=== PATIENT | female | born 1960 | race Caucasian/White ===

== ENCOUNTER 2021-09-02 02:25 | Day surgery (SDC) | payer OTHER, SELFPAY ==
[2021-08-29 16:06] VITALS: BMI 30.2
--- NOTE | 2021-08-29 16:06 | PC.NURSE ---
Report to the Outpatient Waiting Room, entrance under the green pavilion located off [facility], at time _0700 on date __09/02/21__. OR Time: ___09 . - You and your visitor will be asked a series of questions to screen for COVID 19 for your protection. - Only one visitor is allowed at this time. - The patient visitor is requested to leave or wait in car when not with patient. - A mask is required within the hospital. Patients may have clear liquids (water, carbonated beverages, clear teas, apple juice) until 3 hours prior to surgery with a maximum of 20 ounces. - No food from midnight until time of surgery - Infants may have breast milk until 4 hours before surgery, formula 6 hours prior to surgery. - Children will be allowed to drink immediately following surgery. If applicable, please bring a bottle or sippy cup to assist with drinking. Juice, water, soda, and popsicles are readily available. For infants on formula, please bring formula the day of surgery. Pacifiers are allowed. Take the following medications with a SIP of water the morning of surgery: ___N/A Medications to discontinue per physician N/A Date to take last dose N/A Please no make-up, nail irish, hairspray, perfume, deodorant, or body powder the day of surgery. No jewelry (including any body piercings) or valuables the day of surgery, leave them at home. Please take a shower or bath the night before, or the morning of, surgery with an antibacterial soap. Wear comfortable, loose fitting clothing. Children are encouraged to wear pajamas. - Jewelry must be removed prior to entering the operating room. Rings and piercings that are not removed may be cut off. - The hospital will not accept responsibility for valuables. - Please leave all valuables, including medications, at home the day of surgery. If you are going home after surgery, a licensed tow motor driver must drive you home. - NO public transportation without another adult. - We recommend that an adult stay with you for 24 hours following discharge. - We also recommend that you do not drive, make important decision, drink alcoholic beverages, or take any drugs that were not prescribed by your health care provider for at least 24 hours after your discharge time. For Pediatric surgeries, we recommend two adults accompany the child home (only one inside the building at this time). Follow any additional instructions given to you from your surgeon. If you or anyone in your household have experienced Covid symptoms in the past week, please notify your surgeon or the nurse liaison at the phone number below for possible testing. Telephone instructions given to _PATIENT and asked if any additional questions and then verbalized understanding. Patient advised to call surgeon office or pre surgery nurse liaison [phone] if any additional questions.
[2021-09-02] MEDS: ACETAMINOPHEN 500 MG TABLET 1000 MG PO (06:56)
--- NOTE | 2021-09-02 07:18 | WPDHPUPDATE1 ---
History and Physical Update Update Date/Time: 09/02/21 07:18 History and Physical has been reviewed, including an updated exam of the patient. There are NO changes in the patient's condition. Risks, benefits, and alternatives have been discussed and questions answered. Patient agrees to proceed with procedure.
--- NOTE | 2021-09-02 07:18 | PM.HPGS ---
History of Present Illness History of Present Illness Consent: Risks, benefits, and alternatives have been discussed and questions answered. Patient agrees to proceed with procedure. Chief complaint: post menopausal bleeding, endometrial polyp Narrative: Charu Sanchez is a 61 year old female with episode of postmenopausal bleeding. Patient underwent hysteroscopy in the office and there was a large polyp that was unable to be removed with myoma graspers. Was recommended to proceed with MyoSure excision in the operating room. Risks of infection, bleeding, perforation, and fluid imbalance were reviewed. Possible pathology was discussed. Patient voices understanding and agrees to proceed. Review of Systems Review of Systems: not repeated day of surgery; patient states no changes in status PMFSH Past Medical History Medical History (Updated 09/02/21 @ 07:21 by Susie Karimi MD) (normal spontaneous vaginal delivery) X2 Surgical History Surgical History (Updated 09/02/21 @ 07:20 by Susie Karimi MD) History of hysteroscopy August 09 Social History Social History Smoking status: Never smoker Alcohol intake: current Drinks per week: 3 Living arrangements: with family Meds Home Medications and Allergies Home Medications Medication Instructions Recorded Confirmed Type cholecalciferol (vitamin D3) 50,000 unit PO WEEKLY 08/29/21 09/02/21 History [Vitamin D3] conjugated estrogens [Premarin] 0.625 mg VAGINAL DAILY 08/29/21 09/02/21 History fluticasone propionate [Flonase] 1 spray INTRANASAL DAILY 08/29/21 09/02/21 History loratadine [Claritin] 10 mg PO DAILY 08/29/21 09/02/21 History Allergies Allergy/AdvReac Type Severity Reaction Status Date / Time amoxicillin Allergy Intermediate Rash Verified 09/02/21 06:53 Exam Const: General: healthy appearing and alert Orientation/consciousness: patient oriented x3 Resp: Effort & Inspection: normal respiratory effort Auscultation: clear to auscultation bilaterally Cardio: Rate: regular rate Rhythm: regular rhythm GI: GI Palp: Yes Soft to palpation, No Tenderness to palpation present (GI) and No Palpable mass present : External Female Exam: normal external appearance Speculum Exam - Vagina: normal appearance of the vagina and normal vaginal discharge Speculum Exam - Cervix: normal appearance of the cervix Bimanual exam- vagina & uterus: uterine size normal and consistency normal Bimanual Exam- Adnexa, other: normal adnexae and No adnexal tenderness Neuro: General: patient oriented x3 Assessment and Plan Assessment and plan (1) Post-menopausal bleeding: Code(s): N95.0 - Postmenopausal bleeding Status: Acute Assessment and Plan: With known polyp. Plan is to proceed with MyoSure resection of polyp and D&C hysteroscopy
[2021-09-02 07:35] VITALS: BP 141/78; PULSE 67; RESP 16; TEMP 36.4; O2SAT 98
[2021-09-02] MEDS: LACTATED RINGERS 1,000 ML 30 ML IV CONT (07:40)
--- NOTE | 2021-09-02 07:54 | WPDANESEPPF ---
Anes - Initial Pre Proc Eval Procedure: Operation Date: 09/02/21 09:00 Proposed Procedures p Hysteroscopy with Myosure - Susie Karimi MD Date/Time: 09/02/21 07:54 Surgeon: Susie Karimi MD Pre Op Diagnosis: post menopausal bleeding, endometrial polyp Patient Data Age: 61 Gender: F Height: 1.63 m Weight: 81.4 kg Last Vital Signs Temp 36.4 C L 09/02/21 07:35 Pulse 67 09/02/21 07:35 Resp 16 09/02/21 07:35 BP 141/78 H 09/02/21 07:35 Pulse Ox 98 09/02/21 07:35 Allergies Allergy/AdvReac Type Severity Reaction Status Date / Time amoxicillin Allergy Intermediate Rash Verified 09/02/21 06:53 Home Medications Medication Instructions Recorded Confirmed Type cholecalciferol (vitamin D3) 50,000 unit PO WEEKLY 08/29/21 09/02/21 History [Vitamin D3] conjugated estrogens [Premarin] 0.625 mg VAGINAL DAILY 08/29/21 09/02/21 History fluticasone propionate [Flonase] 1 spray INTRANASAL DAILY 08/29/21 09/02/21 History loratadine [Claritin] 10 mg PO DAILY 08/29/21 09/02/21 History Patient hx anesthesia problems: none Family hx anesthesia problems: none Results Review: All pre-operative results and documents have been reviewed as part of the pre-operative evaluation. PMFSH Past Medical History Medical History (Updated 09/02/21 @ 07:21 by Susie Karimi MD) (normal spontaneous vaginal delivery) X2 Surgical History Surgical History (Updated 09/02/21 @ 07:20 by Susie Karimi MD) History of hysteroscopy August 09 Social History Social History Smoking status: Never smoker Alcohol intake: current Drinks per week: 3 Living arrangements: with family Anes - Eval Final PreProcedure Day of Procedure 09/02/21 07:54 Patient weight: overweight Heart: regular rate and rhythm Lungs: clear to auscultation and normal air movement Airway: Mallampati scale class II Neurological: alert and oriented Last oral intake: >/= 8 hours ASA classification: II Emergent: no Anesthetic plan: proceed Anesthesia type and monitoring: general GIVS and LMA Results Review: All pre-operative results and documents have been reviewed as part of the pre-operative evaluation. Informed Consent: The patient's anesthetic plan and its attendant risks and benefits were discussed with the patient/family/POA. Questions were solicited and answers provided to the satisfaction of the patient/family/POA.
--- NOTE | 2021-09-02 09:25 | W.PM.PROC2 ---
Procedure Note - Detailed Date of Procedure 09/02/21 Pre-op Diagnosis post menopausal bleeding, endometrial polyp Post-op Diagnosis Same Procedure Performed D&C hysteroscopy with MyoSure resection of polyp Surgeon Susie Karimi MD Anesthesia MAC and Local Findings Uterus sounds to 7cm. There is a polyp arising from the right sidewall. The remainder of the endometrium appears atrophic. Description of Procedure The patient is taken to the operating room and placed under anesthesia in the dorsal lithotomy position. She was prepped and draped in usual sterile fashion. [place] speculum was placed in the vagina and the cervix grasped on the anterior lip with a tenaculum. The cervix is injected in each quadrant with 1% lidocaine. The uterus is sounded to 7cm. The cervix is serially dilated to an 8 Hegar. The diagnostic MyoSure hysteroscope was placed. The MyoSure device is opened and placed. The polyp was removed in its entirety under direct visualization. The hysteroscope was removed and the medium sharp curette used to curette the endometrium until a good uterine cry was noted in all areas with minimal material consistent with atrophic appearance. All instruments are removed. Sponge, needle, and instrument counts are correct per the OR staff. The patient is awakened from anesthesia and taken to recovery in stable condition. Estimated Blood Loss 5 Drains No Packing No Pathology Yes (Endometrial shavings and curettings) Complications No immediate complications Condition Stable Disposition PACU
[2021-09-02 09:30] VITALS: BP 132/84; PULSE 80; RESP 12; O2SAT 96
[2021-09-02 10:00] VITALS: BP 121/79; PULSE 62; RESP 16
[2021-09-02] MEDS: oxyCODONE HCL (*CRX) 5 MG TAB IR PO (10:26)
[2021-09-02 10:30] VITALS: BP 105/66; PULSE 61; RESP 16
== END 2021-09-02 10:59 | disposition home or self-care (01) ==
PROVIDERS: Visit Provider Obstetrics & Gynecology Gynecology
PROC: 0U5B8ZZ Destruction of Endometrium, Via Natural or Artificial Opening Endoscopic (ICD-10-PCS; CPT 58563; principal; 2021-09-02 09:00)
DX: N95.0 Postmenopausal bleeding (principal); N84.0 Polyp of corpus uteri
CPT/HCPCS: 58558; 88305; A9270; J2250; J2704; J3010; J7030; J7120